=== PATIENT | female | born 1990 | race Two or more races ===

== ENCOUNTER 2025-03-12 15:12 | Emergency (ER) | payer SELFPAY ==
[~2025-03-12] VITALS: Ht 162.6 cm; Wt 68.0 kg
[2025-03-12 15:42] VITALS: BP 120/70; TEMP 98.1
[2025-03-12] MEDS ORDERED: IBUP-1490 PO (17:11)
[2025-03-12 17:21] VITALS: O2SAT 99
== END 2025-03-12 17:22 | disposition home or self-care (01) ==
LOC: ER 15:28
DX: M25.531 Pain in right wrist (principal); W18.30XA Fall on same level, unspecified, initial encounter; Y93.89 Activity, other specified; Y92.89 Other specified places as the place of occurrence of the external cause; Y99.9 Unspecified external cause status
CPT/HCPCS: 73080-TC; 73130-TC